=== PATIENT | female | born 2000 | race Caucasian/White ===

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

== ENCOUNTER → 2020-04-02 10:10 | Outpatient (BNVA) | payer SELFPAY | PROVIDERS: PCP Pediatrics; Visit Provider Advanced Practice Midwife ==

== ENCOUNTER 2020-07-10 14:59 | Emergency (ER) | payer OTHER, SELFPAY ==
[2020-07-10 16:00] VITALS: BP 150/88; PULSE 102; RESP 16; TEMP 36.6; O2SAT 100; BMI 24.5
--- NOTE | 2020-07-10 18:41 | ED.ABDPAIN ---
HPI - Abdominal Pain General Chief Complaint: Abdominal Pain Stated Complaint: abd pain Time Seen by Provider: 07/10/20 17:04 Source: patient Mode of arrival: ambulatory Limitations: no limitations History of Present Illness MD elicited complaint: abdominal pain Onset (ago): day(s) (3) Pain Consistency: intermittent Location: suprapubic Quality: aching Radiation: none Migration to: no migration Exacerbating factors: nothing Relieving factors: nothing Associated symptoms: constipation Related Data Previous Rx's Medication Instructions Recorded norethindrone (contraceptive) 0.35 0.35 mg PO DAILY 30 Days #30 tab 10/13/20 mg tablet Allergies Allergy/AdvReac Type Severity Reaction Status Date / Time No Known Allergies Allergy Verified 07/10/20 16:02 Review of Systems Review of Systems Constitutional : No Weight loss, No Fever, No Chills ENT/Mouth : No sore throat, No Rhinorrhea Eyes: No Swelling, No Redness Cardiovascular : No Chest Pain, No SOB, NoEdema Respiratory : No Cough, No Sputum, No Wheezing Gastrointestinal : no Nausea, no Vomiting, no Diarrhea, positive abdominal Pain, No Hematochezia, No Melena, pos constipation Genitourinary : No Dysuria, No Urinary Frequency, No Hematuria, No Urgency Musculoskeletal : No joint pain, No Myalgias, No Joint Swelling Skin : No Skin Lesions, No rash Neuro : No Weakness, No Numbness, No Dizziness, No Headache Psych : No Anxiety/Panic, No Depression Heme/Lymph: No Bruising, No Lymphadenopathy Endocrine : No Polyuria, No Polydipsia All other systems reviewed and are negative. Physical Exam Vital Signs: Vital Signs: Last Vital Signs Temp 98 F 07/10/20 16:00 Pulse 102 H 07/10/20 16:00 Resp 16 07/10/20 16:00 BP 150/88 H 07/10/20 16:00 Pulse Ox 100 07/10/20 16:00 Body Mass Index 24.5 Appearance: Alert. Oriented X3. No acute distress. Eyes: Pupils equal, round and reactive to light. ENT: Pharynx normal. Neck: Normal inspection. Neck supple. CVS: Normal heart rate and rhythm. Pulses normal. Respiratory: No respiratory distress. Breath sounds normal. Abdomen: Soft and mild suprapubic ttp no rebound or guarding Skin: Skin warm and dry. Normal skin color. Normal skin turgor. Extremities: No lower extremity edema. No calf ttp Neuro: Oriented X 3. No motor deficit. No sensory deficit. Course Course Course Narrative: offered US patient declined at this time due to long wait in ED, apologized to instructed to come back at any time, refused KUB MDM - Abdominal Pain MDM Narrative Medical decision making narrative: 19 yo female reports c/o constipation and lower abdominal pain x 3 days, denies STI concerns, has pain in suprapubic area - at this time labs, KUB ordered, no prior history of ovarian cysts, looks not toxic, drinking a blue slushy no RLQ pain to suggest appendicitis Lab Data Result diagrams: 07/10/20 19:07/10/20 19: Labs: Lab Results 07/10/20 07/10/20 07/10/20 Range/Units 19:05 19:05 19:21 WBC 10.0 (4.8-10.8) X10*3/uL RBC 4.95 (4.20-5.50) X10*6/uL Hgb 13.4 (12.0-16.0) g/dl Hct 41.8 (37-47) % MCV 84.4 (80-98) fL MCH 27.1 (27.0-33.0) pg MCHC 32.1 (31.0-35.0) g/dl RDW 14.1 (11.0-16.0) % Plt Count 371 (160-400) X10*3/uL MPV 9.5 (9.4-12.3) fL Immature Gran % (Auto) 0.4 (0.0-0.4) % Neut % (Auto) 74.8 H (45-73) % Lymph % (Auto) 16.8 L (20-40) % [place] % (Auto) 6.3 (2-11) % Eos % (Auto) 1.2 (0-4) % Baso % (Auto) 0.5 (0-2) % Lymph # (Auto) 1.7 (1.2-4.9) X10*3/uL [place] # (Auto) 0.6 (0.1-1.2) X10*3/uL Eos # (Auto) 0.1 (0.0-0.4) X10*3/uL Baso # (Auto) 0.1 (0.0-0.2) X10*3/uL Abs Immat Gran (auto) 0.04 H (0.00-0.03) X10*3/uL Absolute Neuts (auto) 7.5 (2.0-8.3) X10*3/uL Absolute Nucleated RBC 0.000 (0.0-0.012) X10*3/uL Nucleated RBC % (auto) 0.0 (0.0-0.2) /100WBC Hold Blue Top Urine Color YELLOW Urine Appearance CLOUDY Urine pH 7.0 (5.0-8.0) Ur Specific [place] 1.015 (1.005-1.025) Urine Protein TRACE (NEG-TRACE) MG/DL Urine Glucose (UA) NEG (NEG) MG/DL Urine Ketones NEG (NEG) MG/DL Urine Blood NEG (NEG) Urine Nitrite NEG (NEG) Ur Leukocyte Esterase NEG (NEG) Urine Test NEGATIVE (NEGATIVE) 07/10/20 Range/Units 19:21 WBC (4.8-10.8) X10*3/uL RBC (4.20-5.50) X10*6/uL Hgb (12.0-16.0) g/dl Hct (37-47) % MCV (80-98) fL MCH (27.0-33.0) pg MCHC (31.0-35.0) g/dl RDW (11.0-16.0) % Plt Count (160-400) X10*3/uL MPV (9.4-12.3) fL Immature Gran % (Auto) (0.0-0.4) % Neut % (Auto) (45-73) % Lymph % (Auto) (20-40) % [place] % (Auto) (2-11) % Eos % (Auto) (0-4) % Baso % (Auto) (0-2) % Lymph # (Auto) (1.2-4.9) X10*3/uL [place] # (Auto) (0.1-1.2) X10*3/uL Eos # (Auto) (0.0-0.4) X10*3/uL Baso # (Auto) (0.0-0.2) X10*3/uL Abs Immat Gran (auto) (0.00-0.03) X10*3/uL Absolute Neuts (auto) (2.0-8.3) X10*3/uL Absolute Nucleated RBC (0.0-0.012) X10*3/uL Nucleated RBC % (auto) (0.0-0.2) /100WBC Hold Blue Top SEE NOTE Urine Color Urine Appearance Urine pH (5.0-8.0) Ur Specific [place] (1.005-1.025) Urine Protein (NEG-TRACE) MG/DL Urine Glucose (UA) (NEG) MG/DL Urine Ketones (NEG) MG/DL Urine Blood (NEG) Urine Nitrite (NEG) Ur Leukocyte Esterase (NEG) Urine Test (NEGATIVE) Discharge Plan Discharge Clinical Impression: Abdominal pain Patient Disposition: Home, Self-Care Instructions: Abdominal Pain (ED) Additional Instructions: return to ED for any worsening symptoms or concerns you can return at any time for an ultrasound Prescriptions: No Action norethindrone (contraceptive) [Loretta] 0.35 mg tablet 0.35 mg PO DAILY 30 Days Qty: 30 RF: 5 Referrals: Evelia Blunt MD [Primary Care Provider] - 2 days (if not better on Sunday) [facility] Past Medical History Attestation statement: The following information was validated with the patient. Medical History Asthma Migraine headache with aura Social History Social History Alcohol intake: current Alcohol intake frequency: a few times a month Smoking Status: Never smoker Advance Directives: No Advance Directives Information Provided: Yes
[2020-07-10 19:14] LABS: Glucose Urine UA NEG (NEG); Leukocyte Esterase Urine NEG (NEG); Nitrite Urine NEG (NEG); Specific Gravity - Urine 1.015 (1.005-1.025); Urine Blood NEG (NEG); Urine Ketones NEG (NEG); Urine Protein TRACE MG/DL (NEG-TRACE)
[2020-07-10 19:18] LABS: UPreg QC Valid YES; Urine Pregnancy NEGATIVE (NEGATIVE)
[2020-07-10 19:19] LABS: Appearance Urine CLOUDY; Color Urine YELLOW
[2020-07-10 19:26] LABS: MANUAL DIFF FLAG NO
[2020-07-10 19:30] LABS: Basophils Absolute Auto 0.1 X10*3/uL (0.0-0.2); Basophils Percent Auto 0.5 % (0-2); Eosinophils Absolute Auto 0.1 X10*3/uL (0.0-0.4); Eosinophils Percent Auto 1.2 % (0-4); Hematocrit 41.8 % (37-47); Hemoglobin 13.4 g/dl (12.0-16.0); Imm Gran Abs Auto 0.04 X10*3/uL (0.00-0.03); Imm Gran Pct Auto 0.4 % (0.0-0.4); Lymphocytes Absolute Auto 1.7 X10*3/uL (1.2-4.9); Lymphocytes Percent Auto 16.8 % (20-40); Mean Corpuscular HGB Conc 32.1 g/dl (31.0-35.0); Mean Corpuscular Hemoglobin 27.1 pg (27.0-33.0); Mean Corpuscular Volume 84.4 fL (80-98); Mean Platelet Volume 9.5 fL (9.4-12.3); Monocytes Absolute Auto 0.6 X10*3/uL (0.1-1.2); Monocytes Percent Auto 6.3 % (2-11); Neutrophils Absolute Auto 7.5 X10*3/uL (2.0-8.3); Neutrophils Percent Auto 74.8 % (45-73); Platelet Count 371 X10*3/uL (160-400); Red Blood Count 4.95 X10*6/uL (4.20-5.50); Red Cell Distribution Width 14.1 % (11.0-16.0)
[2020-07-10 20:08] LABS: Alanine Aminotransferase 11 U/L (0-31); Albumin Level 4.4 g/dL (3.5-5.0); Alkaline Phosphatase 88 U/L (39-117); Anion Gap 12 (12-20); Aspartate Amino Transferase 11 U/L (5-31); Bilirubin Direct < 0.2 mg/dL (0.0-0.5); Bilirubin Total 0.4 mg/dL (0.0-1.0); Blood Urea Nitrogen 16 mg/dL (9-16); Calcium 9.8 mg/dL (8.4-10.2); Carbon Dioxide 25 mmol/L (22-29); Chloride 105 mmol/L (96-108); Creatinine Clr Calc Pharmacy 102.3; Estimated Glomerular Filt Rate > 60; Glucose Random 90 mg/dL (60-115); Lipase 18 U/L (8-78); Potassium 4.4 mmol/L (3.3-5.1); Sodium 138 mmol/L (135-145); Total Protein 7.8 g/dL (6.5-8.0)
== END 2020-07-10 20:15 | disposition home or self-care (01) ==
PROVIDERS: Emergency Provider Emergency Medicine; PCP Pediatrics
DX: R10.9 Unspecified abdominal pain (principal)
CPT/HCPCS: 36415; 80048; 80076; 81003; 81025; 83690; 85025; 99283; 99284

== ENCOUNTER 2024-05-14 10:02 | Outpatient (REF) | payer OTHER, SELFPAY ==
[2024-05-14 13:41] LABS: MANUAL DIFF FLAG NO
[2024-05-14 13:52] LABS: Basophils Percent Auto 0.6 % (0-2); Eosinophils Absolute Auto 0.1 X10*3/uL (0.0-0.4); Eosinophils Percent Auto 0.7 % (0-4); Hematocrit 42.9 % (37.0-47.0); Hemoglobin 14.1 g/dl (12.0-16.0); Imm Gran Abs Auto 0.04 X10*3/uL (0.00-0.03); Imm Gran Pct Auto 0.6 % (0.0-0.4); Lymphocytes Absolute Auto 1.7 X10*3/uL (1.2-4.9); Lymphocytes Percent Auto 23.2 % (20-40); Mean Corpuscular HGB Conc 32.9 g/dl (31.0-35.0); Mean Platelet Volume 9.9 fL (9.4-12.3); Monocytes Absolute Auto 0.4 X10*3/uL (0.1-1.2); Monocytes Percent Auto 5.6 % (2-11); Neutrophils Percent Auto 69.3 % (45-73); Platelet Count 384 X10*3/uL (160-400); Red Blood Count 5.23 X10*6/uL (4.20-5.50); Red Cell Distribution Width 13.2 % (11.0-16.0); White Blood Count 7.2 X10*3/uL (4.8-10.8)
[2024-05-14 14:11] LABS: Alanine Aminotransferase 19 U/L (0-31); Albumin Level 4.7 g/dL (3.5-5.0); Alkaline Phosphatase 97 U/L (39-117); Anion Gap 9 (12-20); Aspartate Amino Transferase 17 U/L (5-31); Bilirubin Total 0.5 mg/dL (0.0-1.0); Blood Urea Nitrogen 12 mg/dL (9-16); Calcium 9.9 mg/dL (8.4-10.2); Carbon Dioxide 26 mmol/L (22-29); Chloride 107 mmol/L (96-108); Cholesterol 140 mg/dL (<200); Estimated Glomerular Filt Rate > 60; Glucose Fasting 88 mg/dL (60-99); HDL Cholesterol 38 mg/dL (>40); LDL Cholesterol Calculated 91 mg/dL (<100); Potassium 4.3 mmol/L (3.3-5.1); Sodium 138 mmol/L (135-145); Total Protein 8.3 g/dL (6.5-8.0); Triglycerides 57 mg/dL (<150)
[2024-05-14 14:29] LABS: TSH reflex Free T4 0.72 uIU/mL (0.32-4.0); Vitamin D 25-OH Total 18.3 ng/mL (>30)
== END 2024-05-14 10:03 | disposition home or self-care (01) ==
LOC: HO.HMGCLDS 10:02
PROVIDERS: PCP Internal Medicine; Visit Provider Internal Medicine
DX: Z00.01 Encounter for general adult medical examination with abnormal findings (principal); R10.13 Epigastric pain; R10.10 Upper abdominal pain, unspecified; R00.2 Palpitations; Z13.1 Encounter for screening for diabetes mellitus; Z13.220 Encounter for screening for lipoid disorders; Z71.89 Other specified counseling
CPT/HCPCS: 36415; 80053; 80061; 82306; 84443; 85025; 96127; 99385; 99497

== ENCOUNTER 2024-05-14 10:02 | Outpatient (AMB) | payer OTHER, SELFPAY ==
--- NOTE | 2024-05-14 10:53 | A.OFFPC_ITS ---
Vital Signs 05/14/24 10:54 Height 5 ft 1 in Weight 155 lb BMI 29.3 BP 102/72 Blood Pressure Location Rt brachial Position Sitting Respiration 15 Pulse 96 Pulse Source Pulse Oximeter Temp 98.5 F Temp Source Oral Pulse Oximetry (%) 100 Oxygen Delivery Method Room Air Intake Visit Reasons: UPFITTER/PE Intake Note: Pt is here today as a New Patient to est care/PE Allergies No Known Allergies Allergy (Verified 05/14/24 11:16) Medication List - Last Reconciled 05/14/24 by Vianey Davis MD No Known Home Meds Tobacco use date assessed: 05/14/24 Dental Screening Dental Screen Date: 05/14/24 Did you have a dental visit in the last 12 months?: Yes Did you have a dental problem in the last 6 months where you did not have access to dental care?: No Was dental information given to patient?: Patient has dentist HPI UPFITTER/PE HPI Details 23-year-old lady, new to practice, here to establish care with new PCP and for her physical exam. She goes to [facility] rn clinical research for her routine Pap and pelvic exam, last done 02/21/2022 which showed low-grade squamous intraepithelial lesion can not exclude high-grade squamous intraepithelial lesion. She underwent cervical biopsy which did not show any intraepithelial lesion, only chronic cervicitis. Has been diagnosed to have migraine headache, takes only [id number] meds which has been helping relieve migraine headaches. Complains of intermittent in upper abdominal pain, unrelated to food intake, not accompanied by any hematochezia, no urinary symptoms, and no heartburn symptom. [facility] Medical History (Updated 05/14/24 @ 11:30 by Vianey Davis MD) Upper abdominal pain Epigastric pain Migraine headache with aura Asthma Family History (Updated 05/14/24 @ 11:25 by Vianey Davis MD) Maternal Grandfather Diabetes mellitus Liver cancer Hepatitis B Social History Alcohol intake: current Alcohol intake frequency: a few times a month Patient Tobacco Use Status: Never used Tobacco e-Cigarette/Vaping Use: Currently Using service: No Current occupational status: employed Cognitive needs: No Hearing needs: No Vision needs: No Female Reproductive History Menstrual Age of Menarche: 12 Questionnaire PHQ-9 Over the last 2 weeks, how often have you been bothered by any of the following problems? 1. Little interest or pleasure in doing things: not at all 2. Feeling down, depressed, or hopeless: not at all 3. Trouble falling or staying asleep, or sleeping too much: not at all 4. Feeling tired or having little energy: not at all 5. Poor appetite or overeating: not at all 6. Feeling bad about yourself - or that you are a failure or have let yourself or your family down: not at all 7. Trouble concentrating on things, such as reading the newspaper or watching television: not at all 8. Moving or speaking so slowly that other people could have noticed. Or the opposite - being so fidgety or restless that you have been moving around a lot more than usual: not at all 9. Thoughts that you would be better off or of hurting yourself in some way: not at all Total score: 0 Depression Screening Interpretation: Negative Depression Screening Done: Yes Source: Developed by Drs. Kushal Sneed, Sveta Haynes, Bradford Tomlinson and colleagues, with an educational agustin from [employer]. Thrive Questionnaire Date Thrive assessed: 05/07/24 I am a: Patient What is your living situation today?: I have a steady place to live Within the past 12 months, did the food you bought not last and you didn't have the money to get more?: Never true Within the past 12 months, did you worry whether your food would run out before you got money to buy more?: Never true Do you have trouble paying for medicines?: No Do you have trouble getting transportation to medical appointments?: No Do you have trouble paying your heating and electricity bill?: No Do you have trouble taking care of your child, family member or friend?: No Do you have trouble with day-to-day activities such as bathing, preparing meals, shopping, managing finances, etc.?: No Are you currently unemployed and looking for a job?: No Are you interested in more education?: No Please select the resources that you would like help with: None Currently or been in a relationship where the following occur: No concerns reported THRIVE Score: 0 AUDIT C Alcohol Use Questionnaire (AUDIT-C) 1. How often do you have a drink containing alcohol?: Monthly or less 2. How many drinks containing alcohol do you have on a typical day when you are drinking?: 1 or 2 3. How often do you have six or more drinks on one occasion?: Never Total Score: 1 YENNY-7 AMB Questionnaire YENNY-7 Date YENNY - 7 assessed: 05/14/24 Feeling nervous, anxious, or on edge: 0 = Not at all Not being able to stop or control worryin = Not at all Worrying too much about different things: 0 = Not at all Trouble relaxin = Not at all Being so restless that it is hard to sit still: 0 = Not at all Becoming easily annoyed or irritable: 0 = Not at all Feeling afraid as if something awful might happen: 0 = Not at all Total YENNY-7 score (0-4 normal; 5-9 mild; 10-14 moderate; 15-21 severe): 0 Source: Developed by Drs. Kushal Sneed, Sveta Haynes, Bradford Tomlinson and colleagues, with an educational agustin from [employer]. YENNY-7 Assessment Billing YENNY-7 Assessment Tool: YENNY-7 Assessment 16588 Review of Systems Const Denies body aches, Denies fatigue, Denies fever(s), Denies headache(s) and Denies weakness Eyes Denies change in vision ENT Denies dizziness, Denies headache(s), Denies nasal congestion, Denies nasal discharge and Denies sore throat Card Denies chest pain, Denies lightheadedness, Reports palpitations (intermittent) and Denies dyspnea Resp Denies chest congestion, Denies cough, Denies dyspnea and Denies wheezing GI Reports as per HPI Denies hematuria, Denies urinary frequency, Denies dysuria and Denies urinary urgency Musc Reports no additional complaints Skin/Breast Denies breast pain, Denies breast mass and Denies rash Neuro Denies dizziness, Denies headache(s) and Denies weakness Psych Reports no additional complaints Endo Denies fatigue, Denies polydipsia, Denies polyuria and Reports palpitations (intermittent) Baldev/Lymph Denies easy bruising Aller/Immun Denies seasonal rhinorrhea and Denies wheezing Physical exam (Primary Care) Vital Signs: Last Vital Signs Temp 98.5 F 05/14/24 10:54 Pulse 96 05/14/24 10:54 Resp 15 05/14/24 10:54 BP 102/72 05/14/24 10:54 Pulse Ox 100 05/14/24 10:54 Oxygen Delivery Method Room Air 05/14/24 10:54 BMI result Body Mass Index 29.3 Tobacco/Smoking Status: Tobacco use Status Tobacco use date assessed 05/14/24 05/14/24 10:58 Patient Tobacco Use Status Never used Tobacco 05/14/24 10:58 e-Cigarette/Vaping Use Currently Using 05/14/24 10:58 PHQ-9: PHQ-9 Score PHQ-9: Total score 0 05/14/24 11:19 Depression Screening Interpretation: Negative Thrive Assessment: Date of Thrive Assessment Date Thrive assessed 05/07/24 05/14/24 10:58 Currently or been in a relationship where the following occur: No concerns reported Advance Care Planning discussion: Completed/Scanned Date of discussion: 05/14/24 Who was present: Patient Forms completed: Health Care Proxy Time spent: 16-45 minutes Actual minutes spent: 2 Const General: no acute distress and alert Orientation/consciousness: patient oriented x3 HENMT Head: Yes normocephalic Ears: external ears normal, TM's normal bilaterally and EAC's normal General nose exam: Normal external nose present Face and sinus: Yes face symmetric Mouth: Normal oral and palatal mucosa present, oropharynx normal and moist mucous membranes Eyes General: appearance normal, both eyes and all related structures Neck Neck: Yes full ROM, Yes no lymphadenopathy and Yes supple Thyroid: Thyroid normal Resp Effort & Inspection: normal respiratory effort and able to speak in complete sentences Auscultation: clear to auscultation bilaterally Cardio Rate: regular rate Rhythm: regular rhythm Heart sounds: S1 normal heart sound present and S2 normal heart sound present GI Palpation (GI): Soft to palpation, Tenderness to palpation present (GI) in the epigastrum, no guarding and no masses Auscultation: normal bowel sounds General: Yes no CVA tenderness Back/Spine/Pelvis Back: no CVA tenderness and No back tenderness Skin General skin exam: no rashes or lesions noted Neuro General: patient oriented x3, gait normal, moves all extremities, Normal light touch and pain sensation, no focal motor deficits and CN's II-XI intact bilaterally Cognition (Neuro): normal cognition Gait exam (Neuro): Normal gait present Motor exam (neuro): 5/5 motor strength present throughout Extrem General: Yes normal to inspection, Yes full ROM, Yes no joint enlargement, Yes no pedal edema and Yes normal gait Psych Appearance: grossly normal and well kempt Mental Status: mental status grossly normal Speech and movement: Normal speech and movement present Affect: normal affect Attitude: cooperative Thought process: Normal thought process present Thought content: Normal thought content present Coding Level of Care Code New Pt Prev Care 18-39yr(68266 Diagnoses Annual visit for general adult medical examination with abnormal findings Z00.01 Epigastric pain R10.13 Intermittent palpitations R00.2 Additional Codes YENNY-7 Assessment Billing - YENNY-7 Assessment Tool: YENNY-7 Assessment 83177 ([id number]) Vital Signs *Quality* - Advance Care Planning discussion: Completed/Scanned ([id number]) Vital Signs *Quality* - Time spent: 16-45 minutes ([id number]) Assessment & Plan Assessment & Plan (1) Annual visit for general adult medical examination with abnormal findings: Code(s): Z00.01 - Encounter for general adult medical examination with abnormal findings Plan: Will check appropriate labs. Recommended dental visit every 6 months and regular eye exams, at least every 2 years. Take adequate calcium in diet and vitamin-D 3 at 2000 IU per cap once a day, in addition to weight-bearing exercises to help maintain good muscle tone and weight control. Instructed to do self-breast exam, and recommended to get yearly mammogram, starting at age 40. Patient goes to [facility] meals her cervical cancer screening/pelvic exam. Up-to-date with the Tdap, reminded to get her yearly flu shot declines getting COVID vaccines (2) Epigastric pain: Code(s): R10.13 - Epigastric pain Category: Medical Plan: Upper GI series abdominal ultrasound ordered, avoidance of triggers for heartburn such as spicy foods, acidic foods, fried foods (3) Intermittent palpitations: Code(s): R00.2 - Palpitations Plan: Will check TSH and CBC Orders: Orders US abdomen complete 05/14/24 R10.10 - Upper abdominal pain, unspecified Lipid Panel 05/14/24 R00.2 - Palpitations, R10.10 - Upper abdominal pain, unspecified, R10.13 - Epigastric pain, Z00.01 - Encounter for general adult medical examination with abnormal findings, Z13.1 - Encounter for screening for diabetes mellitus, Z13.220 - Encounter for screening for lipoid disorders, Z71.89 - Other specified counseling Vitamin D 25-OH Total 05/14/24 R00.2 - Palpitations, R10.10 - Upper abdominal pain, unspecified, R10.13 - Epigastric pain, Z00.01 - Encounter for general adult medical examination with abnormal findings, Z13.1 - Encounter for screening for diabetes mellitus, Z13.220 - Encounter for screening for lipoid disorders, Z71.89 - Other specified counseling TSH reflex Free T4 05/14/24 R00.2 - Palpitations, R10.10 - Upper abdominal pain, unspecified, R10.13 - Epigastric pain, Z00.01 - Encounter for general adult medical examination with abnormal findings, Z13.1 - Encounter for screening for diabetes mellitus, Z13.220 - Encounter for screening for lipoid disorders, Z71.89 - Other specified counseling [place] upper GI series 05/14/24 R10.10 - Upper abdominal pain, unspecified, R10.13 - Epigastric pain Complete Blood Count Auto Diff 05/14/24 R00.2 - Palpitations, R10.10 - Upper abdominal pain, unspecified, R10.13 - Epigastric pain, Z00.01 - Encounter for general adult medical examination with abnormal findings, Z13.1 - Encounter for screening for diabetes mellitus, Z13.220 - Encounter for screening for lipoid disorders, Z71.89 - Other specified counseling Comprehensive [place]. Panel Fast 05/14/24 R00.2 - Palpitations, R10.10 - Upper abdominal pain, unspecified, R10.13 - Epigastric pain, Z00.01 - Encounter for general adult medical examination with abnormal findings, Z13.1 - Encounter for screening for diabetes mellitus, Z13.220 - Encounter for screening for lipoid disorders, Z71.89 - Other specified counseling
[2024-05-14 10:54] VITALS: BP 102/72; PULSE 96; RESP 15; TEMP 36.9; O2SAT 100; BMI 29.3
== END 2024-05-14 11:40 | disposition home or self-care (01) ==
LOC: HO.HMCC 10:03
PROVIDERS: PCP Internal Medicine; Visit Provider Internal Medicine
DX: Z00.01 Encounter for general adult medical examination with abnormal findings (principal); R10.13 Epigastric pain; R00.2 Palpitations; Z00.00 Encounter for general adult medical examination without abnormal findings

== ENCOUNTER 2024-08-11 13:29 | Outpatient (AMB) | payer OTHER, SELFPAY ==
[2024-08-11 13:35] VITALS: BP 96/60; PULSE 90; TEMP 36.8; O2SAT 97; BMI 28.2
--- NOTE | 2024-08-11 13:35 | AM.OFFWIN_ITS ---
Intake Vital Signs 08/11/24 13:35 Height 5 ft 1 in Weight 149 lb 4 oz BMI 28.2 BP 96/60 Blood Pressure Location Rt brachial Position Sitting Pulse 90 Pulse Source Pulse Oximeter Temp 98.3 F Temp Source Oral Pulse Oximetry (%) 97 Oxygen Delivery Method Room Air Intake Visit Reasons: EP Hemorrhoid pain, and bleeding Patient Tobacco Use Status: Never used Tobacco [employer]in[employer] Technician Required: No Allergies No Known Allergies Allergy (Verified 08/11/24 13:43) Do you need a note to return to daycare/school/sports/work: No HPI HPI Comments History of Present Illness Details 23 y/o Female patient who presents to [facility] walk in clinic with c/o Rectal bleeding associated with pain since last Sunday. Reports h/o External hemorrhoids when she gave to her first child. She does endorse Constipation and hasn't moved her Bowels for 3 days now. C/o Pain with sitting down. [facility] Medical History (Updated 08/11/24 @ 14:25 by Amanda Winston NP) Constipation External hemorrhoid Vitamin D deficiency Upper abdominal pain Epigastric pain Migraine headache with aura Asthma Family History (Updated 05/14/24 @ 11:25 by Vianey Davis MD) Maternal Grandfather Diabetes mellitus Liver cancer Hepatitis B Social History Alcohol intake: current Alcohol intake frequency: a few times a month Patient Tobacco Use Status: Never used Tobacco e-Cigarette/Vaping Use: Currently Using service: No Current occupational status: employed Cognitive needs: No Hearing needs: No Vision needs: No Female Reproductive History Menstrual Age of Menarche: 12 Review of Systems Const All systems reviewed & are unremarkable except as noted in HPI and below Physical Exam Vital Signs: Last Vital Signs Temp 98.3 F 08/11/24 13:35 Pulse 90 08/11/24 13:35 BP 96/60 08/11/24 13:35 Pulse Ox 97 08/11/24 13:35 Oxygen Delivery Method Room Air 08/11/24 13:35 BMI result Body Mass Index 28.2 Const General: no acute distress Nutritional Appearance: well nourished Orientation/consciousness: patient oriented x3 GI Palpation (GI): Soft to palpation, not firm, nontender, no guarding, not rigid and No hepatosplenomegaly present Auscultation: Hypoactive bowel sounds present Rectal Exam - Female: normal sphincter tone, External hemorrhoid(s) present and tenderness Neuro General: patient oriented x3, gait normal and moves all extremities Psych Speech and movement: Normal speech and movement present Assessment & Plan Assessment & Plan (1) External hemorrhoid: Code(s): K64.4 - Residual hemorrhoidal skin tags Plan: Ordered Hydrocortisone Cream (2) Constipation: Code(s): K59.00 - Constipation, unspecified Qualifiers: Constipation type: slow transit constipation Qualified Code(s): K59.01 - Slow transit constipation Plan: Ordered Miralax Powder Increase Fiber, fluid intake Ordered Colace. Medications: New hydrocortisone 2.5% 1 appl SC BID 30 grams 0RF hemorrhoids K64.4 - Residual hemorrhoidal skin tags polyethylene glycol 3350 (Miralax) 17 grams PO BID 238 grams 0RF K59.00 - Constipation, unspecified docusate sodium (Colace) 100 mg PO DAILY 30 caps 0RF K59.01 - Slow transit constipation Coding Level of Care Code Est Pt Level 4 (51453) Diagnoses External hemorrhoid K64.4 Slow transit constipation K59.01 Constipation type: slow transit constipation Time Spent (min) 20
--- OUTSIDE RECORDS SUMMARY | 2024-08-11 14:50 | XMS_ITS | Encounter Summary ---
Author Organization [facility] Address [address] [place], [place] [id number] Phone Care Team Providers Care Police Dispatcher Name Role Phone Evelia Blunt MD Primary Care Provider [phone] Encounter Details Date Type Department Care Team (Late st Contact Info) Description 10/05/2016 Conversion Encounter [facility] [address] [place] [address] Social History Tobacco Use Types Packs/Day Years Used Date Smoking Tobacco: Never Comments:Never smoker Comments Unknown Sex and Gender Information Value Date Recorded Sex Assigned at Not on file Legal Sex Female 5:10 PM EDT Gender Identity Female 04/28/2020 9:48 AM EST Sexual Orientation Straight 06/15/2022 9: 39 AM EDT documented as of this encounter Plan of Treatment Not on file documented as of this encounter Visit Diagnoses Not on filedocumented in this encounter Care Teams Police Dispatcher Relationship Specialty Start Date End Date Evelia Blunt MD [address] [place] [address] PCP - General 09/29/16 09/26/22 documented as of this encounter
== END 2024-08-11 14:26 | disposition home or self-care (01) ==
PROVIDERS: PCP Internal Medicine; Visit Provider Nurse Practitioner Family
DX: K64.4 Residual hemorrhoidal skin tags (principal); K59.01 Slow transit constipation

== ENCOUNTER → 2024-08-11 13:29 | Outpatient (BNVA) | payer OTHER, SELFPAY | PROVIDERS: PCP Internal Medicine; Visit Provider Nurse Practitioner Family | DX: K64.4 Residual hemorrhoidal skin tags (principal); K59.01 Slow transit constipation | CPT/HCPCS: 99212 ==